=== PATIENT | male | born 1980 | race Caucasian/White ===

== ENCOUNTER 2018-12-26 06:48 | Emergency (ER) | payer SELFPAY ==
[2018-12-26 07:02] VITALS: BP 126/98; PULSE 72; O2SAT 98
--- NOTE | 2018-12-26 07:32 | ERPHSYRPT ---
- History of Present Illness Time Seen by Provider: 12/26/18 07:00 Source: patient Exam Limitations: no limitations Patient Subjective Stated Complaint: Pt stated that for about the last week that his right eye is extremely painful upon waking up for several hours, eye [place], feels like something is in there and it's real dry but he doesn't see anything in it Triage Nursing Assessment: Pt walked into the ER, right eye slightly swollen, vitals wnl, nothing seen in the right eye, no other issues at this time Physician History: 38 y/o white male presents with right watery, itchy, mild pain right eye for a week. no known injury and no known fb into right eye. usually occurs in the morning and improves as the day progresses. never had before. Timing/Duration: week(s) (1) Location: right eye Severity: mild Apparent Injury: no Associated Symptoms: burning, itching, redness, No decreased vision, No blurred vision, No double vision Visual Assistive Devices: None Chemical Exposure: No Trauma: No Welding Arc/Tanning Bed Exposure: No Allergies/Adverse Reactions: No Known Drug Allergies Allergy (Verified 12/26/18 07:02) - Review of Systems Constitutional: No Symptoms Eyes: Itchy, Foreign Body Sensation, Other (in the mornings only) Ears, Nose, & Throat: No Symptoms Respiratory: No Symptoms Cardiac: No Symptoms Abdominal/Gastrointestinal: No Symptoms Genitourinary Symptoms: No Symptoms Musculoskeletal: No Symptoms Skin: No Symptoms Neurological: No Symptoms Psychological: No Symptoms Endocrine: No Symptoms Hematologic/Lymphatic: No Symptoms Immunological/Allergic: No Symptoms All Other Systems: Reviewed and Negative - Past Medical History Pertinent Past Medical History: No Neurological History: No Pertinent History ENT History: No Pertinent History Cardiac History: No Pertinent History Respiratory History: No Pertinent History Endocrine Medical History: No Pertinent History Musculoskeletal History: Other GI Medical History: No Pertinent History History: No Pertinent History Psycho-Social History: No Pertinent History Male Reproductive Disorders: No Pertinent History Other Medical History: back injury - Past Surgical History Past Surgical History: No Neuro Surgical History: No Pertinent History Cardiac: No Pertinent History Respiratory: No Pertinent History Gastrointestinal: No Pertinent History Genitourinary: No Pertinent History Musculoskeletal: No Pertinent History Male Surgical History: No Pertinent History - Social History Smoking Status: Current every day smoker How long have you smoked: 10 years Exposure to second hand smoke: Yes Drug Use: none Patient Lives Alone: No - Nursing Vital Signs Nursing Vital Signs: Initial Vital Signs Temperature 97.7 F 12/26/18 06:53 Pulse Rate 72 12/26/18 06:53 Blood Pressure 126/98 12/26/18 06:53 O2 Sat by Pulse Oximetry 98 12/26/18 06:53 Pain Scale Pain Intensity [Right Eye] 3 Pain Intensity 3 - Physical Exam General Appearance: no apparent distress, alert, anxiety Eye Exam: bilateral eye: normal inspection, PERRL, EOMI Ears, Nose, Throat Exam: normal ENT inspection, moist mucous membranes Neck Exam: normal inspection, non-tender, supple, full range of motion Respiratory Exam: airway intact, No chest tenderness, No respiratory distress Gastrointestinal Exam: No tenderness Extremity Exam: normal inspection, normal range of motion, pelvis stable Neurologic: alert, oriented x 3, cooperative, 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 during work, use a lubricating eye drop as directed on over the counter box. follow up with an ophthamologist as discussed for further management. Prescriptions: Erythromycin Base 3.5 gm [Erythromycin 3.5 GM OPHTH.] 3.5 gm OP BID #1 tube Prednisone 10 mg [Deltasone 10 mg] 10 mg PO BID #8 tablet
== END 2018-12-26 07:45 | disposition home or self-care (01) ==
LOC: ED 06:48
DX: H10.9 Unspecified conjunctivitis (principal)
CPT/HCPCS: 99283